=== PATIENT | female | born 1950 | race Caucasian/White ===

== ENCOUNTER 2017-08-13 13:01 | Outpatient (CLI) | payer MEDICARE, BC | END 2017-08-13 13:02 | disposition home or self-care (01) | LOC: BICMAMMO 13:01 | PROVIDERS: ATTEND Family Medicine | DX: Z12.31 Encounter for screening mammogram for malignant neoplasm of breast (principal); Z13.820 Encounter for screening for osteoporosis; M85.88 Other specified disorders of bone density and structure, other site | CPT/HCPCS: 77063; 77067; 77080 ==

== ENCOUNTER 2018-10-30 10:21 | Outpatient (CLI) | payer MEDICARE, BC ==
--- NOTE | 2018-10-30 11:00 | MMO ---
Bilateral MAMMO Bilat Screen [facility]. CLINICAL HISTORY: Patient is 68 years old and is seen for screening. The patient has the following family history of breast cancer: cousin female. The patient has no personal history of cancer. VIEWS: The views performed were: bilateral craniocaudal with tomosynthesis; bilateral mediolateral oblique with tomosynthesis; and bilateral exaggerated craniocaudal. FILMS COMPARED: The present examination has been compared to a prior imaging study performed at [facility] on 08/13/2017. MAMMOGRAM FINDINGS: There are scattered fibroglandular densities. There are benign appearing calcifications seen in both breasts. There are no suspicious masses, suspicious calcifications, or new areas of architectural distortion. IMPRESSION: THERE IS NO MAMMOGRAPHIC EVIDENCE OF MALIGNANCY. A ROUTINE FOLLOW-UP MAMMOGRAM IN 1 YEAR IS RECOMMENDED. THE RESULTS OF THIS EXAM WERE SENT TO THE PATIENT. ACR BI-RADS Category 2 - Benign finding MAMMOGRAPHY NOTE: 1. A negative mammogram report should not delay a biopsy if a dominant of clinically suspicious mass is present. 2. Approximately 10% to 15% of breast cancers are not detected by mammography. 3. Adenosis and dense breasts may obscure an underlying neoplasm. Reported by: ASHLY GRIFFITH MD Electonically Signed: [id number]
== END 2018-10-30 10:22 | disposition home or self-care (01) ==
LOC: BICMAMMO 10:21
PROVIDERS: ATTEND Family Medicine
DX: Z12.31 Encounter for screening mammogram for malignant neoplasm of breast (principal); Z80.3 Family history of malignant neoplasm of breast
CPT/HCPCS: 77063; 77067

== ENCOUNTER 2020-03-01 10:03 | Outpatient (CLI) | payer MEDICARE, BC ==
--- NOTE | 2020-03-01 10:29 | BD ---
EXAM: Bone densitometry using DEXA HISTORY: 69 yo female. Screening for postmenopausal osteoporosis FINDINGS: L1--bone mineral density 0.747 g/sq cm; T score -2.2 ; Z score -0.3 L2--bone mineral density 0.888 g/sq cm; T score -1.3 ; Z score 0.9 L3--bone mineral density 0.900 g/sq cm; T score -1.7 ; Z score 0.6 L4--bone mineral density 0.847 g/sq cm; T score -1.9 ; Z score 0.4 Total L1-L4--bone mineral density 0.847 g/sq cm; T score -1.8 ; Z score 0.4 Left femoral neck--bone mineral density0.652; T score -1.8 ; Z score 0.1 Total proximal left femur--bone mineral density 0.815; T score -1.0 ; Z score 0.5 The 10 year fracture risk for a major osteoporotic fracture is 16% and for a hip fracture is 3.4%. IMPRESSION: Osteopenia
--- NOTE | 2020-03-01 11:24 | MMO ---
Bilateral MAMMO Bilat Screen [facility]. CLINICAL HISTORY: Patient is 69 years old and is seen for screening. The patient has the following family history of breast cancer: cousin female. The patient has no personal history of cancer. VIEWS: The views performed were: bilateral craniocaudal with tomosynthesis and bilateral mediolateral oblique with tomosynthesis. FILMS COMPARED: The present examination has been compared to prior imaging studies performed at [facility] on 08/13/2017 and 10/30/2018. This study has been interpreted with the assistance of computer-aided detection. MAMMOGRAM FINDINGS: The breasts are heterogeneously dense, which could obscure a lesion on mammography. There are no suspicious masses, suspicious calcifications, or new areas of architectural distortion. IMPRESSION: THERE IS NO MAMMOGRAPHIC EVIDENCE OF MALIGNANCY. A ROUTINE FOLLOW-UP MAMMOGRAM IN 1 YEAR IS RECOMMENDED. THE RESULTS OF THIS EXAM WERE SENT TO THE PATIENT. ACR BI-RADS Category 1 - Negative MAMMOGRAPHY NOTE: 1. A negative mammogram report should not delay a biopsy if a dominant of clinically suspicious mass is present. 2. Approximately 10% to 15% of breast cancers are not detected by mammography. 3. Adenosis and dense breasts may obscure an underlying neoplasm. Reported by: AARON HADLEY MD Electonically Signed: [id number]
== END 2020-03-01 10:04 | disposition home or self-care (01) ==
LOC: BICMAMMO 10:03
PROVIDERS: ATTEND Family Medicine
DX: Z12.31 Encounter for screening mammogram for malignant neoplasm of breast (principal); Z13.820 Encounter for screening for osteoporosis; Z78.0 Asymptomatic menopausal state; Z80.3 Family history of malignant neoplasm of breast; M85.89 Other specified disorders of bone density and structure, multiple sites
CPT/HCPCS: 77063; 77067; 77080